=== PATIENT | female | born 1935 | race Caucasian/White ===

== ENCOUNTER 2019-06-14 10:01 | Inpatient (IN) | payer MEDICARE, OTHER ==
[~2019-06-14] VITALS: Ht 160 cm; Wt 65.3 kg
[2019-06-14] MEDS ORDERED: FLUC150T5 PO (10:33)
[2019-06-14] MEDS ORDERED: ZOLP5TAB8 PO (10:33)
[2019-06-14] MEDS ORDERED: ROSU5TAB PO (10:33)
[2019-06-14] MEDS ORDERED: METO-356 PO (10:33)
[2019-06-14] MEDS ORDERED: NITR50CA PO (10:33)
[2019-06-14] MEDS ORDERED: ZOLP5TAB2 PO (10:33)
[2019-06-14] MEDS ORDERED: FURO20TA4 PO (10:33)
[2019-06-14 11:04] LABS: *CLARITY,URINE CLEAR (CLEAR)
[2019-06-14 11:05] LABS: *BILIRUBIN,URIN NEGATIVE (NEGATIVE); *BLOOD, URINE NEGATIVE (NEGATIVE); *COLOR,URINE YELLOW (YELLOW); *KETONES,URINE NEGATIVE (NEGATIVE); *UROBILINOGEN,URINE 0.2 E.U./dl (NORMAL); LEUKOCYTE ESTERASE ,URINE NEGATIVE (NEGATIVE); NITRITE, URINE NEGATIVE (NEGATIVE); UGLUCOSE NEGATIVE (NEGATIVE)
[2019-06-14 11:16] LABS: BACTERIA,URINE FEW /HPF (NONE SEEN); RBC,URINE 0-3 /HPF (0-3); SQUAMOUS EPITHELIAL CELL,UR MODERATE /HPF (NONE SEEN); WBC,URINE 0-3 /HPF (0-3)
[2019-06-14 11:28] LABS: BASOPHILS % (AUTO) 0.4 % (0.0-2.0); EOSINOPHILS % (AUTO) 0.2 % (0.0-7.0); HEMATOCRIT 35.4 % (31.2-41.9); HEMOGLOBIN 11.7 g/dL (10.9-14.3); LYMPHOCYTES # (AUTO) 0.7 K/uL (20.0-40.0); LYMPHOCYTES % (AUTO) 6.5 % (20.5-51.5); MEAN CORPUSCULAR HEMOGLOBIN 31.1 uug (24.7-32.8); MEAN CORPUSCULAR HGB CONC 33 g/dL (32.3-35.6); MEAN CORPUSCULAR VOLUME 93.8 fL (75.5-95.3); MONOCYTES # (AUTO) 0.8 K/uL (2.0-10.0); MONOCYTES % (AUTO) 7.4 % (0.0-11.0); NEUTROPHILS # (AUTO) 9.1 K/uL (1.8-8.9); NEUTROPHILS % (AUTO) 85.5 % (38.5-71.5); PLATELET COUNT (AUTO) 237 K/uL (179-408); RED BLOOD CELL COUNT(AUTO) 3.77 MIL/uL (3.63-4.92); WHITE BLOOD COUNT (AUTO) 10.7 K/uL (3.8-11.8)
[2019-06-14 11:46] LABS: CREATININE 0.9 mg/dL (0.6-1.3); POTASSIUM 3.6 mmol/L (3.5-5.1)
[2019-06-14 11:59] LABS: BILIRUBIN,DIRECT 0.2 mg/dL (0.0-0.2); BILIRUBIN,TOTAL 0.6 mg/dL (0.2-1.0); TOTAL PROTEIN, SERUM 6.9 g/dL (6.4-8.2)
[2019-06-14] MEDS ORDERED: TEMAZEPAM 15 MG CAPSULE PO PRN (13:15)
[2019-06-14] MEDS ORDERED: HYDROCODONE/APAP 5-325MG TABLET PO PRN (13:15)
[2019-06-14] MEDS ORDERED: ACETAMINOPHEN 325 MG TABLET PO PRN (13:15)
[2019-06-14] MEDS ORDERED: MAGNESIUM HYDROXIDE 30 ML LIQUID UDC PO PRN (13:15)
[2019-06-14] MEDS ORDERED: MORPHINE SULFATE 2 MG/1 ML DISP.SYRIN IV PRN (13:15)
[2019-06-14] MEDS ORDERED: ONDANSETRON 4 MG/2 ML VIAL IV PRN (13:15)
[2019-06-14] MEDS ORDERED: HOME MED MISCELLANEOUS XX SCH (14:30)
[2019-06-14] MEDS ORDERED: GUAIFENESIN/CODEINE 5 ML LIQUID UDC PO PRN (15:15)
[2019-06-14 15:25] VITALS: BP 106/52
[2019-06-14] MEDS ORDERED: GUAIFENESIN SUGAR FREE 100 MG/5 ML UDC PO PRN (15:45)
[2019-06-14] MEDS ORDERED: ZOLPIDEM 5 MG TABLET PO SCH ×2 (18:00→21:00)
[2019-06-14 19:59] VITALS: BP 105/55
[2019-06-14] MEDS: NITROFURANTOIN/NITROFURAN MAC 100 MG CAPSULE PO SCH (20:37)
[2019-06-14] MEDS ORDERED: ATORVASTATIN 10 MG TABLET PO SCH (21:00)
[2019-06-15 00:34] VITALS: BP 103/52
[2019-06-15 05:10] VITALS: BP 96/45
[2019-06-15] MEDS ORDERED: PANTOPRAZOLE SODIUM 40 MG TABLET.DR PO SCH (07:00)
[2019-06-15 07:07] LABS: BASOPHILS # (AUTO) 0.1 K/uL (0.0-8.0); BASOPHILS % (AUTO) 0.7 % (0.0-2.0); EOSINOPHILS % (AUTO) 0.6 % (0.0-7.0); HEMATOCRIT 34.6 % (31.2-41.9); HEMOGLOBIN 11.6 g/dL (10.9-14.3); LYMPHOCYTES # (AUTO) 1.2 K/uL (20.0-40.0); LYMPHOCYTES % (AUTO) 14.7 % (20.5-51.5); MEAN CORPUSCULAR HEMOGLOBIN 31.2 uug (24.7-32.8); MEAN CORPUSCULAR HGB CONC 34 g/dL (32.3-35.6); MEAN CORPUSCULAR VOLUME 93.2 fL (75.5-95.3); MONOCYTES # (AUTO) 0.7 K/uL (2.0-10.0); MONOCYTES % (AUTO) 8.6 % (0.0-11.0); NEUTROPHILS # (AUTO) 6.3 K/uL (1.8-8.9); NEUTROPHILS % (AUTO) 75.4 % (38.5-71.5); PLATELET COUNT (AUTO) 215 K/uL (179-408); RED BLOOD CELL COUNT(AUTO) 3.71 MIL/uL (3.63-4.92); WHITE BLOOD COUNT (AUTO) 8.4 K/uL (3.8-11.8)
[2019-06-15 07:23] LABS: CARBON DIOXIDE 31 mmol/L (21-32); CHLORIDE 100 mmol/L (98-107); CHOLESTEROL 100 mg/dL (<200); CREATININE 0.7 mg/dL (0.6-1.3); GLUCOSE 118 mg/dL (74-106); HDL CHOLESTEROL 31 mg/dL (40-60); MAGNESIUM 2.2 mg/dL (1.8-2.4); PHOSPHOROUS 3.1 mg/dL (2.5-4.9); POTASSIUM 3.7 mmol/L (3.5-5.1); TRIGLYCERIDES 57 MG/DL (30-150); UREA NITROGEN, BLOOD 12 mg/dL (7-18)
[2019-06-15 07:41] LABS: THYROID STIMULATING HORMONE 1.088 mIU/mL (0.358-3.740)
[2019-06-15] MEDS: NITROFURANTOIN/NITROFURAN MAC 100 MG CAPSULE PO SCH (08:31)
[2019-06-15] MEDS ORDERED: FLUCONAZOLE 100 MG TABLET PO SCH (09:00)
[2019-06-15] MEDS ORDERED: METOPROLOL SUCCINATE XL 25 MG TAB.SR.24H PO SCH (09:00)
[2019-06-15] MEDS ORDERED: FUROSEMIDE 20 MG TABLET PO SCH (09:00)
[2019-06-15] MEDS ORDERED: IV NS 1000 ML 1,000 ML IV PRN (09:45)
[2019-06-15] MEDS ORDERED: SWABABLE VALVE TRANSFER SET EA MC ONE (09:46)
[2019-06-15] MEDS ORDERED: IOHEXOL 350 100 ML INFUS..BTL ONE (09:46)
[2019-06-15] MEDS ORDERED: IV NORMAL SALINE 250 ML IV ONE (09:46)
[2019-06-15 11:44] VITALS: BP 105/55
[2019-06-15 16:05] VITALS: BP 103/52
[2019-06-15 20:28] VITALS: BP 114/69
== END 2019-06-15 21:14 | disposition home or self-care (01) | DRG 202 ==
LOC: ER 10:01 → TELE3 13:26 → MEDSURG3 06-15 11:28
PROVIDERS: ADMIT Nurse Practitioner Acute Care; ATTEND Nurse Practitioner Acute Care
DX: J20.8 Acute bronchitis due to other specified organisms (principal); I50.30 Unspecified diastolic (congestive) heart failure; I50.32 Chronic diastolic (congestive) heart failure; N39.0 Urinary tract infection, site not specified; R07.89 Other chest pain; I11.0 Hypertensive heart disease with heart failure; Z82.49 Family history of ischemic heart disease and other diseases of the circulatory system; Z90.710 Acquired absence of both cervix and uterus; K21.9 Gastro-esophageal reflux disease without esophagitis; E78.5 Hyperlipidemia, unspecified; M81.0 Age-related osteoporosis without current pathological fracture; Z98.42 Cataract extraction status, left eye; Z98.41 Cataract extraction status, right eye; Z98.82 Breast implant status; I08.0 Rheumatic disorders of both mitral and aortic valves; G47.00 Insomnia, unspecified; E11.9 Type 2 diabetes mellitus without complications; Z87.440 Personal history of urinary (tract) infections; K59.00 Constipation, unspecified
CPT/HCPCS: 36415; 70030-TC; 71045; 71275; 83605; 83735; 84100; 84443; 85025; 85730; 87040; 87086; 93005; 93307; A4663; G0378; J7030; J7050; Q9967